=== PATIENT | female | born 1960 | race Caucasian/White ===

== ENCOUNTER 2016-11-20 09:14 | Emergency (ER) | payer OTHER ==
[~2016-11-20] VITALS: Ht 177.8 cm; Wt 86.2 kg
[2016-11-20 09:25] VITALS: BP 164/106
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
--- NOTE | 2016-11-20 10:27 | RADIOLOGY REPORT ---
EXAMINATION: XR WRIST, RIGHT CLINICAL INFORMATION: Pain and swelling after fall COMPARISON: None TECHNIQUE: AP, lateral, and oblique views of the right wrist. FINDINGS: There is a transverse comminuted fracture of the right distal radius. There is slight dorsal displacement of distal fracture fragment seen on the lateral view. There is an ulnar styloid fracture. There is extensive overlying soft tissue swelling. Carpal bones are unremarkable. IMPRESSION: Comminuted displaced transverse fracture of the right distal radius and ulnar styloid fracture. There is extensive overlying soft tissue swelling.
[2016-11-20] MEDS ORDERED: PERCOCET 5-3251 EACH PO (12:23)
--- NOTE | 2016-11-20 13:03 | RADIOLOGY REPORT ---
EXAMINATION: XR WRIST, RIGHT CLINICAL INFORMATION: Post reduction. COMPARISON: Right wrist performed today at 9:57 AM TECHNIQUE: AP and lateral views. of the right wrist. FINDINGS: Comminuted distal radial fracture has been stabilized with a hard cast extending through the right wrist and forearm. A small ulnar stylet process fractures unchanged. IMPRESSION: Stable right distal radial transverse fracture status post placement of right wrist in a cast.
== END 2016-11-20 13:02 ==
LOC: ERH 09:14
DX: S52.321A Displaced transverse fracture of shaft of right radius, initial encounter for closed fracture (principal); W00.0XXA Fall on same level due to ice and snow, initial encounter; Y93.9 Activity, unspecified; Y92.9 Unspecified place or not applicable
CPT/HCPCS: 73100-RT; 73110-RT